=== PATIENT | male | born 1975 | race Caucasian/White ===

== ENCOUNTER 2022-09-10 12:30 | Emergency (ER) | payer OTHER ==
[~2022-09-10] VITALS: Ht 175.3 cm; Wt 95.3 kg
[2022-09-10 13:01] VITALS: BP 137/85
[2022-09-10] MEDS ORDERED: KETOROLAC 30 MG/ML VIAL IM ONE (13:30)
[2022-09-10] MEDS ORDERED: ONDANSETRON 4 MG ODT PO ONE (13:30)
[2022-09-10 14:14] LABS: BASOPHILS # (AUTO) 0.1 K/uL (0.00-0.22); BASOPHILS % (AUTO) 0.5 % (0.0-2.0); EOSINOPHILS # (AUTO) 0.1 K/uL (0-0.4); HEMATOCRIT 50.6 % (36-52); HEMOGLOBIN 17.4 g/dL (12.0-18.0); LYMPHOCYTES # (AUTO) 2.9 K/uL (2.0-11.5); LYMPHOCYTES % (AUTO) 26.8 % (20.5-51.1); MEAN CORPUSCULAR HEMOGLOBIN 31 pg (27-31); MEAN CORPUSCULAR HGB CONC 34 g/dL (33-37); MEAN CORPUSCULAR VOLUME 90.5 fL (80-94); MONOCYTES # (AUTO) 0.9 K/uL (0.8-1.0); MONOCYTES % (AUTO) 8.4 % (1.7-9.3); NEUTROPHILS # (AUTO) 6.8 K/uL (1.8-7.7); NEUTROPHILS % (AUTO) 63.3 % (42.2-75.2); PLATELET COUNT (AUTO) 230 K/uL (140-450); RED CELL DISTRIBUTION WIDTH 13.8 % (11.6-13.7); WHITE BLOOD COUNT (AUTO) 10.8 K/uL (4.8-10.8)
[2022-09-10 14:28] LABS: APPEARANCE,URINE CLEAR (CLEAR); BILIRUBIN,URINE NEGATIVE (NEGATIVE); BLOOD, URINE NEGATIVE (NEGATIVE); COLOR,URINE YELLOW (YELLOW); LEUKOCYTE ESTERASE ,URINE NEGATIVE (NEGATIVE); NITRITE, URINE NEGATIVE (NEGATIVE); PH,URINE 6.5 (5.0-9.0); UGLUCOSE NEGATIVE (NEGATIVE)
[2022-09-10 14:34] LABS: ANION GAP 13.3 (8-16); CARBON DIOXIDE 27.1 mmol/L (21-32); CREATININE 1.2 mg/dL (0.6-1.3); POTASSIUM 4.4 mmol/L (3.5-5.1); TOTAL BILIRUBIN 0.6 mg/dL (0.0-1.0)
--- NOTE | 2022-09-10 15:38 | NUR ---
RESTING IN BED, ABLE TO AMBULATE WITH STEADY GAIT.PAIN RESOLVING
[2022-09-10] MEDS ORDERED: CIPR500T4 PO (15:56)
[2022-09-10] MEDS ORDERED: ONDA8TAB87 PO (15:56)
[2022-09-10] MEDS ORDERED: LOPE-289 PO (15:56)
[2022-09-10] MEDS ORDERED: IBUP-2213 PO (15:56)
[2022-09-10 16:37] VITALS: BP 137/85
== END 2022-09-10 16:37 | disposition home or self-care (01) ==
LOC: MED 12:30
DX: R10.30 Lower abdominal pain, unspecified (principal); R19.7 Diarrhea, unspecified; R11.0 Nausea
CPT/HCPCS: 36415; 74176; 80053; 81003; 83690; 85025; 96372; 99285; J1885; Q0162

== ENCOUNTER 2024-02-17 12:10 | Emergency (ER) | payer OTHER ==
[~2024-02-17] VITALS: Ht 175.3 cm; Wt 100.3 kg
[~2024-02-17 12:10] MED LIST: CIPR500T4 PO; IBUP-2213 PO; LOPE-289 PO; ONDA8TAB87 PO
[2024-02-17 12:18] VITALS: BP 126/80; PULSE 73; RESP 16; TEMP 98.1; O2SAT 94
[2024-02-17] MEDS: MECLIZINE 25 MG TAB PO ONE (13:28)
[2024-02-17] MEDS: FAMOTIDINE 20 MG TAB PO ONE (13:28)
[2024-02-17] MEDS: ONDANSETRON 4 MG ODT PO ONE (13:29)
[2024-02-17] MEDS ORDERED: ONDA-188 SL (13:45)
[2024-02-17] MEDS ORDERED: MECL-303 PO (13:45)
[2024-02-17] MEDS ORDERED: FAMO-90 PO (13:45)
== END 2024-02-17 13:52 | disposition home or self-care (01) ==
LOC: MED 12:10
DX: A08.4 Viral intestinal infection, unspecified (principal); Z79.899 Other long term (current) drug therapy
CPT/HCPCS: 99284; J8597; Q0162